=== PATIENT | male | born 1945 | race Caucasian/White ===

== ENCOUNTER 2022-06-20 06:36 | Inpatient (IN) ==
--- NOTE | 2022-06-09 09:56 | Anesthesiology Consultation ---
Date of Service June 09, 2022 Assessment & Plan (1) Encounter for pre-operative examination: Chart Review Chart Review: Acceptable Risk for Surgery and Patient NOT seen in Pre Admission Testing Pt initially scheduled for surgery 05/09/22 but case cancelled due to patient having yeast infection to bilateral groin area. Per nursing assessment- rash improving. - Check BSG AM DOS -COVID screening: Per PAT nursing assessment on 06/09/22. No known COVID-19 positive contacts or current COVID-19 related symptoms. Travel screen negative. Patient vaccinated for Covid. At surgeon discretion if preop Covid testing being done. History Surgery Operation Date: 06/14/22 08:00 Proposed Procedures p Percutaneous Endovascular Abdominal Aortic Aneurysm Repair - Lv Ervin MD Height/Weight Height: 5 ft 11 in Weight: 100.698 kg Allergies Allergy/AdvReac Type Severity Reaction Status Date / Time No Known Allergies Allergy Verified 05/09/22 06:25 Medications Home Medications Medication Instructions Recorded Confirmed Last Taken amlodipine 10 mg tablet 10 mg PO QAM 03/28/22 06/09/22 05/09/22 05:15 aspirin 81 mg tablet,delayed 81 mg PO QAM 03/28/22 06/09/22 05/09/22 05:15 release atenolol 100 mg tablet 100 mg PO QAM 03/28/22 06/09/22 05/09/22 05:15 atorvastatin 40 mg tablet 40 mg PO QAM 03/28/22 06/09/22 05/09/22 05:15 bupropion HCl 100 mg tablet 100 mg PO QAM 03/28/22 06/09/22 05/09/22 05:15 calcitriol 0.5 mcg capsule 0.5 mcg PO QAM 03/28/22 06/09/22 05/08/22 09:00 clonazepam 0.5 mg tablet (Klonopin) 0.5 mg PO BID 03/28/22 06/09/22 05/09/22 05:15 ezetimibe 10 mg tablet (Zetia) 10 mg PO QAM 03/28/22 06/09/22 05/09/22 05:15 fluoxetine 40 mg capsule (Prozac) 40 mg PO QAM 03/28/22 06/09/22 05/09/22 05:15 glimepiride 1 mg tablet 1 mg PO QAM 03/28/22 06/09/22 05/08/22 09:30 irbesartan 300 mg tablet 300 mg PO QAM 03/28/22 06/09/22 05/08/22 09:00 metformin 1,000 mg tablet 1,000 mg PO BID 03/28/22 06/09/22 05/07/22 09:00 spironolactone 25 mg tablet 25 mg PO QAM 03/28/22 06/09/22 Unknown (Aldactone) tamsulosin 0.4 mg capsule 0.4 mg PO HS 03/28/22 06/09/22 05/08/22 21:00 hydralazine 50 mg tablet 50 mg PO TID 04/18/22 06/09/22 05/09/22 05:15 insulin detemir U-100 100 unit/mL 18 unit subcut HS 04/18/22 06/09/22 05/08/22 19:00 (3 mL) subcutaneous pen nystatin 100,000 unit/gram topical 1 applic topical BID #60 grams 05/09/22 06/09/22 Unknown powder Past Medical History Medical History CKD (chronic kidney disease) Follows with Dr. Anne ([facility]) Comparison labs from 02/2022 with creatinine 2.22 (stable on preop labs) Diabetes mellitus IDDM History of anxiety History of high cholesterol Hx of abdominal aortic aneurysm A fusiform aneurysm of the infrarenal abdominal aorta measures 5.5 x 5.3 cm (AP x transverse), There is thrombus within the aneurysm sac which measures 7.4 cm craniocaudal dimension > per 03/28/22 CTA Abd/pelvis Hx of chronic sinusitis Hypertension Left bundle branch block Obesity Rash Rash to upper thigh, pt thinks from sweating at night, Dr Ervin aware, medication prescribed, pt states rash is improving, not completely gone, but better. Umbilical hernia Past Family History Family History Mother Hx of abdominal aortic aneurysm Hx of thyroid disease Father Hx of kidney disease Past Surgical History Surgical History History of deviated nasal septum Multiple repairs Hx of appendectomy Hx of cataract extraction R/L Hx of colonoscopy Hx of inguinal hernia repair Hx of malignant neoplasm of thymus removed Hx of tonsillectomy Hx of tooth extraction Hx of wisdom tooth extraction Social History Smoking Status: Former smoker tobacco type: cigarettes Do You Dip or Chew Tobacco: No Smoking End Date: quit 12 yrs ago Hx Alcohol Use: Yes Alcohol type: beer, wine and hard liquor alcohol intake frequency: holidays/special occasions only Hx Substance Use: No substance use type: does not use Lab Results Anesthesia Preop Results Results Anesthesia Widget: WBC 8.03 K/ul (4.8-10.8) 05/03/22 Hgb 15.8 g/dl (14.0-18.0) 05/03/22 Hct 44.9 % (40.1-51.0) 05/03/22 Plt 224 K/uL (130-400) 05/03/22 Na 138 mmol/L (136-145) 05/03/22 K 4.7 mmol/L (3.5-5.1) 05/03/22 Cl 105 mmol/L (98-107) 05/03/22 CO2 24 mmol/L (21-32) 05/03/22 BUN 37 mg/dl (6-23) H 05/03/22 Creat 2.37 mg/dl (0.6-1.4) H 05/03/22 Glucose Level 228 mg/dl (70-99(Fasting)) H 05/03/22 POC Glucose 181 mg/dl (70-99) H 05/09/22 PT 10.6 Seconds (9.0-12.0) 05/03/22 PTT 28.8 Seconds (21.0-31.0) 05/03/22 INR 1.0 (0.9-1.1) 05/03/22 HA1c 8.2 % (4.5-5.6) H 05/03/22 Blood Type A Positive 05/09/22 Antibody Screen NEGATIVE 05/09/22 Testing Electrocardiogram Date: 05/03/22 NSR at 66bpm. LBBB. Echo performed 05/03/22. Chest X-Ray Date: 05/03/22 FINDINGS: PA and lateral chest radiographs are obtained. No prior studies are available for comparison at the time of dictation. The heart is enlarged. The pulmonary vasculature is noncontrast. There is apparent widening of the mediastinum. Emphysematous changes noted. Nonspecific interstitial thickening is likely chronic. Foci of parenchymal scarring are seen throughout both lungs. No airspace consolidation typical for pneumonia or pleural effusion is identified. There is no pneumothorax. The skeletal structures are osteopenic. The bony thorax appears intact. IMPRESSION: Cardiomegaly and emphysema with no active disease in the chest. There is apparent widening of the mediastinum. This may related to ectasia or uncoiling of the thoracic aorta. Correlation with a CT angiogram of the chest is recommended to exclude underlying thoracic aortic aneurysm. (Dr Ervin reviewed CXR and feels patient can proceed with PEVAR as scheduled) Echocardiogram Date: 05/03/22 EF 55%. No RWMA. Septal motion consistent with bundle branch block. Moderate cLVH. Mild biatrial dilation. No significant valvular disease. Other Testing CTA Abdomen/Pelvis (03/28/22) There is a 5.5 x 5.3 cm fusiform aneurysm of the infrarenal abdominal aorta as detailed above. Note that there are 2 large right renal arteries. The more inferiorly located renal artery arises 2 cm above the aneurysm sac. The major branches of the abdominal aorta are widely patent, as are the iliac arteries. Cardiomegaly and emphysema. Cholelithiasis. Marked prostatomegaly with evidence of chronic bladder outlet obstruction.
--- NOTE | 2022-06-19 13:15 | History & Physical Report ---
Date of Service June 19, 2022 Assessment & Plan (1) AAA (abdominal aortic aneurysm) without rupture: Plan: Patient is admitted for a PEVAR repair of his AAA. I have discussed the risks options and benefits of the procedure with the patient. The patient understands the risks options and benefits and agrees to the procedure. History of Present Illness Chief Complaint: AAA Primary Care Provider: Shantanu Live DO Mr. Calderon is an elderly male who presented for a 6-month follow-up visit regarding his history of abdominal aortic aneurysm. Patient denies any significant changes in his health since being seen here 6 months ago. On usn the aneurysm has grown to 5.2 cm in size. This was confirmed by CTA. He specifically denies any signs of cerebrovascular insufficiency, claudication, chest pain, shortness of breath, abdominal pain, nausea, vomiting, rest pain, nonhealing wounds or ulcers, discoloration of the feet or toes, other concerns. Allergies Allergy/AdvReac Type Severity Reaction Status Date / Time No Known Allergies Allergy Verified 05/09/22 06:25 Home Medications Medication Instructions Recorded Confirmed Type amlodipine 10 mg tablet 10 mg PO QAM 03/28/22 06/09/22 History aspirin 81 mg tablet,delayed 81 mg PO QAM 03/28/22 06/09/22 History release atenolol 100 mg tablet 100 mg PO QAM 03/28/22 06/09/22 History atorvastatin 40 mg tablet 40 mg PO QAM 03/28/22 06/09/22 History bupropion HCl 100 mg tablet 100 mg PO QAM 03/28/22 06/09/22 History calcitriol 0.5 mcg capsule 0.5 mcg PO QAM 03/28/22 06/09/22 History clonazepam 0.5 mg tablet (Klonopin) 0.5 mg PO BID 03/28/22 06/09/22 History ezetimibe 10 mg tablet (Zetia) 10 mg PO QAM 03/28/22 06/09/22 History fluoxetine 40 mg capsule (Prozac) 40 mg PO QAM 03/28/22 06/09/22 History glimepiride 1 mg tablet 1 mg PO QAM 03/28/22 06/09/22 History irbesartan 300 mg tablet 300 mg PO QAM 03/28/22 06/09/22 History metformin 1,000 mg tablet 1,000 mg PO BID 03/28/22 06/09/22 History spironolactone 25 mg tablet 25 mg PO QAM 03/28/22 06/09/22 History (Aldactone) tamsulosin 0.4 mg capsule 0.4 mg PO HS 03/28/22 06/09/22 History hydralazine 50 mg tablet 50 mg PO TID 04/18/22 06/09/22 History insulin detemir U-100 100 unit/mL 18 unit subcut HS 04/18/22 06/09/22 History (3 mL) subcutaneous pen nystatin 100,000 unit/gram topical 1 applic topical BID #60 grams 05/09/22 06/09/22 Rx powder Past Med/Surg History Medical History CKD (chronic kidney disease) Follows with Dr. Anne ([facility]) Comparison labs from 02/2022 with creatinine 2.22 (stable on preop labs) Diabetes mellitus IDDM History of anxiety History of high cholesterol Hx of abdominal aortic aneurysm A fusiform aneurysm of the infrarenal abdominal aorta measures 5.5 x 5.3 cm (AP x transverse), There is thrombus within the aneurysm sac which measures 7.4 cm craniocaudal dimension > per 03/28/22 CTA Abd/pelvis Hx of chronic sinusitis Hypertension Left bundle branch block Obesity Rash Rash to upper thigh, pt thinks from sweating at night, Dr Ervin aware, medication prescribed, pt states rash is improving, not completely gone, but better. Umbilical hernia Surgical History History of deviated nasal septum Multiple repairs Hx of appendectomy Hx of cataract extraction R/L Hx of colonoscopy Hx of inguinal hernia repair Hx of malignant neoplasm of thymus removed Hx of tonsillectomy Hx of tooth extraction Hx of wisdom tooth extraction Family History Mother Hx of abdominal aortic aneurysm Hx of thyroid disease Father Hx of kidney disease Social History Smoking Status: Former smoker Tobacco Type: Cigarettes Smoking End Date: quit 12 yrs ago; Second Hand Exposure: No; Do You Dip or Chew Tobacco: No; Tobacco Cessation Education Requested by Patient: No Hx Alcohol Use: Yes Alcohol type: beer, wine and hard liquor Alcohol Intake Frequency: Monthly or Less Hx Substance Use: No Preferred Language: Malagasy Communication Ability: Effective Hearing Ability: Hard of Hearing Air Tube Releaser Required: No Beliefs That Will Affect Care: None marital status: Current Living Situation: Spouse current occupational status: retired Other Information That Helps Us Care for You: No Feels Safe at Home: Yes Safety Concerns: Feels Safe At This Time caffeine: Yes (coffee) Physical Activity Frequency: Does not Exercise Seatbelt Use: always Sunscreen Use: No Assistive Devices: Glasses Review of Systems All systems reviewed & are unremarkable except as noted in HPI & below Physical Exam Constitutional: WD/WN, vitals as above Respiratory: normal respiratory effort Auscultation: + diminished lung sounds Cardiovascular: RRR, no murmur, no edema Vessels: abdominal aortic pulse present and femoral pulses present Extremities: normal capillary refill Gastrointestinal (Abdomen): normal bowel sounds, soft, nontender, no hepatosplenomegaly Musculoskeletal: no cyanosis or clubbing, extremities motor strength 5/5 Neurologic: CN's II-XI intact bilaterally and moves all extremities Psychiatric: Orientation: alert and oriented x 3
[~2022-06-20 06:36] MED LIST: LACTATED RINGER'S 1,000 ML IV SCH; ceFAZolin 2000MG 2,000 MG/15 ML SYR IV SCH
[2022-06-20] MEDS ORDERED: NEOSTIGMINE METHYLSULFATE 1 MG/ML 10ML VIAL ONE (06:51)
[2022-06-20] MEDS ORDERED: ONDANSETRON INJ 2 MG/ML 2 ML VIAL ONE (06:51)
[2022-06-20] MEDS ORDERED: fentaNYL citrate 100 MCG/2 ML VIAL ONE (06:51)
[2022-06-20] MEDS ORDERED: GLYCOPYRROLATE 0.2 MG/ML VIAL ONE (06:51)
[2022-06-20] MEDS ORDERED: PROPOFOL IV EMULSION 10 MG/ML 20 ML VIAL IV ONE (06:51)
[2022-06-20] MEDS ORDERED: PROMETHAZINE HCL 12.5 MG in SODIUM CHLORIDE 0.9% 50 ML IV PRN (07:13)
[2022-06-20] MEDS ORDERED: ATROPINE SULFATE 0.1 MG/ML 10ML SYR IV PRN (07:13)
[2022-06-20] MEDS ORDERED: ePHEDrine sulfate 50 MG/ML AMP IV PRN (07:13)
[2022-06-20] MEDS ORDERED: HYDROmorphone INJ 2 MG/ML SYR/VIAL IV PRN (07:13)
[2022-06-20] MEDS ORDERED: ONDANSETRON INJ 2 MG/ML 2 ML VIAL IV PRN ×2 (07:13→12:53)
[2022-06-20] MEDS ORDERED: fentaNYL citrate 100 MCG/2 ML VIAL IV PRN (07:13)
[2022-06-20 07:23] LABS: Albumin Level 4.3 gm/dl (3.4-5.0); Bilirubin Direct 0.1 mg/dl (0-0.2); Bilirubin,Total 0.9 mg/dl (0.2-1.0); Total Protein 7.7 gm/dl (6.0-8.3)
--- NOTE | 2022-06-20 07:27 | History & Physical Bridge Note ---
Date of Service June 20, 2022 History & Physical Bridge Note I have examined the patient, reviewed the History & Physical and in the interval since the performance of the History & Physical I have noted the following changes of clinical significance: no changes noted
[2022-06-20 08:04] LABS: Calcium 9.7 mg/dl (8.5-10.1); Creatinine Clr Calc Pharmacy 31.1 ml/min; Potassium 4.1 mmol/L (3.5-5.1)
[2022-06-20] MEDS ORDERED: HEPARIN SOD (PORCINE) 1000 UNIT/ML ONE (09:50)
[2022-06-20] MEDS ORDERED: ePHEDrine sulfate 50 MG/ML SYR ONE (09:50)
[2022-06-20] MEDS ORDERED: PROTAMINE SULFATE 10 MG/ML 5 ML VIAL IV ONE (10:35)
[2022-06-20] MEDS ORDERED: VISIPAQUE IV PRN (10:37)
[2022-06-20] MEDS ORDERED: ROCURONIUM BROMIDE 10 MG/ML 5 ML VIAL IV ONE (10:39)
[2022-06-20] MEDS ORDERED: ARISTA ABSORBABLE HEMOSTAT 3GM TOP ONE (10:42)
[2022-06-20] MEDS ORDERED: LIDOCAINE 2% MPF LOCAL 5 ML VIAL INFIL ONE (10:44)
--- NOTE | 2022-06-20 10:55 | Post Operative Brief Note ---
Immediate Post Op Note v1 Date of Surgery June 20, 2022 Pre & Post Diagnosis Operation Date: 06/20/22 08:00 Pre-Op Diagnosis: Infrarenal Abdominal Aortic Aneurysm Post-Op Diagnosis: Infrarenal Abdominal Aortic Aneurysm I identified the patient and participated in the time-out.: Yes Procedure Operation Date: 06/20/22 08:00 Actual Procedures p Percutaneous Endovascular Aneurysm Repair, Mechanical Closure of Bilateral Femoral Arteries - Lv Ervin MD Surgeon Lv Ervin MD Radiator Mechanic MD Richie Estimated Blood Loss 30 Findings Consistent with Post-Op Diagnosis Drains Casey Catheter Anesthesia Type General Complications none Disposition Accompanied Patient To Recovery: No Disposition: Recovery Room
[2022-06-20] MEDS ORDERED: MIDAZOLAM HCL 1 MG/ML 2ML VIAL ONE (11:01)
--- NOTE | 2022-06-20 11:03 | Operative Report ---
Post Operative Report Pre & Post Diagnosis Operation Date: 06/20/22 08:00 Pre-Op Diagnosis: Infrarenal Abdominal Aortic Aneurysm Post-Op Diagnosis: Infrarenal Abdominal Aortic Aneurysm I identified the patient and participated in the time-out.: Yes Procedure Operation Date: 06/20/22 08:00 Actual Procedures p Percutaneous Endovascular Aneurysm Repair, Mechanical Closure of Bilateral Femoral Arteries - Lv Ervin MD Surgeon Lv Ervin MD Chemical Analyst Moses Diaz MD Estimated Blood Loss 30 Findings Consistent with Post-Op Diagnosis Infrarenal abdominal aortic aneurysm excluded following EVAR. Delayed Type II endoleak present at case completion. Bilateral renal arteries, external and iliac arteries patent without stenosis. Specimens None Drains None Anesthesia Type General Complications None Disposition Accompanied Patient To Recovery: No Indications Infrarenal abdominal aortic aneurysm Description of Procedure The patient was taken to the operating room suite and placed in the supine position. The abdomen, bilateral groins, and bilateral thigh was then prepped and draped in a sterile manner. Using ultrasound guidance, the right common femoral artery was accessed using micropuncture technique. Micropuncture wire and was then inserted. A small skin incision was made at the skin site of entry and subcutaneous tissue was dilated using a hemostat. A 5Fr sheath was then placed into the right common femoral artery over the micropuncture wire. The 5Fr sheath was exchanged for the placement of a Perclose closure device at the 10 o'clock position followed by a second Perclose closure device at the 2 o'clock position, followed by a 8Fr sheath over the micropuncture wire. Attention was then turned to the left groin where the left common femoral artery was accessed using micropuncture technique. The micropuncture wire was then inserted. A small skin incision was made at the skin site of entry and subcutaneous tissue was dilated using a hemostat. A 5Fr sheath was then placed into the left common femoral artery over the micropuncture wire. This was exchanged for a angled glide wire. A 14Fr Manta closure device measuring tool was advanced over the wire, measuring depth of closure at 6cm. An angled glidewire was advanced through the right access side into the abdominal aorta. A pigtail catheter was advanced over the wire and the wire was exchanged for a stiff Damari wire advanced into the thoracic aorta. A pigtail catheter was advanced over the angled glidewire on the left side into the abdominal aorta and the wire was exchanged for a stiff Damari wire advanced into the thoracic aorta. On the right side, the 8Fr sheath was exchanged for a 12Fr dilator followed by an exchange for the main body device of the [place] Excluder, 26mm x 14.5mm x 12cm. This was advanced up the right side to the level of about L2. The wire on the left was removed and the pigtail was connected to the power injector. An aortogram was taken and the level of the inferior origin of the bilateral renal arteries were marked. The main body device was deployed to the opening of the contralateral gate. The device was removed and a 16Fr DrySeal sheath was placed. From the left side, the pigtail catheter was exchanged for an angled catheter the contralateral gate was cannulated using an angled glide wire. A pigtail was then advanced to the top of the graft on the left and an image was taken marking the origin of the common and internal iliac artery on the left. This was marked. An appropriately sized 16mm x 16mm x13.5 mm [place] limb was then advanced and deployed. The device was exchanged for a 12 Fr DrySeal sheath. The proximal graft, origin of left limb at the flow divider, and the distal limb were then ballooned using hand insufflation. Attention was moved to the right side where an appropriately sized 16mm x 16mm x 9.5cm limb was deployed and then ballooned using hand insufflation. A completion angiogram was performed demonstrating a small type II endoleak. No Type I or type III endoleak. Bilateral renal arteries and internal iliac arteries with brisk filling. The left DrySeal sheath was exchanged for the 14Fr Manta device. The Manta was deployed. Adequate hemostasis was obtained. Angiography following deployment showed intact AGRICULTURAL EQUIPMENT SALES MANAGER, SFA and profunda on the left without contrast extravasation. Pressure was held. The right DrySeal sheath was then removed with deployment of both Perclose devices. Pressure was held and adequate hemostasis was obtained. Patient was extubated and taken to the PACU in stable condition. A total of 9.9min of fluoroscopy time, 465 mGy and 80cc contrast used for the duration of the case. I, Dr. Ervin was present and scrubbed for the entire procedure. I attest to the content of the Intraoperative Record and any orders documented therein. Any exceptions are noted below. Supervising Physician Co-Signing Physician Notes Lv Ervin MD
[2022-06-20 12:16] LABS: Hematocrit (blood only) 40.9 % (40.1-51.0); Hemoglobin 14.1 g/dl (14.0-18.0)
[2022-06-20] MEDS ORDERED: D5W AND 1/2NSS 1,000 ML IV SCH (12:53)
[2022-06-20] MEDS ORDERED: MoRPHine SULFATE 4 MG/ML 1 ML CARP\\VIAL IV PRN (12:53)
[2022-06-20] MEDS ORDERED: oxyCODONE/ACETAMINOPHEN 5mg/325mg TAB PO PRN (12:53)
[2022-06-20] MEDS ORDERED: PHARMACY GLYCEMIC MGMT CONSULT PRN (12:53)
--- NOTE | 2022-06-20 13:26 | Anesthesiology Progress Note ---
Date of Service June 20, 2022 Anesthesia Post Procedure Vital Signs Vital Signs: Temp Pulse Pulse Pulse Resp BP BP 06/20/22 13:00 55 L 14 145/74 H 06/20/22 12:45 54 L 16 06/20/22 12:34 53 L 14 143/77 H 06/20/22 12:33 06/20/22 13:00 53 L 06/20/22 12:45 54 L 165/68 H 06/20/22 12:10 54 L 16 06/20/22 12:00 55 L 16 06/20/22 11:50 36.4 C L 56 L 17 06/20/22 11:40 57 L 17 06/20/22 11:30 56 L 17 06/20/22 11:20 64 18 06/20/22 11:11 37.0 C 61 18 06/20/22 07:02 37.1 C 63 20 143/91 H BP Pulse Ox O2 Del Method O2 Flow Rate 06/20/22 13:00 90 Oxymask 6 06/20/22 12:45 92 Oxymask 6 06/20/22 12:34 92 Oxymask 6 06/20/22 12:33 93 06/20/22 13:00 06/20/22 12:45 06/20/22 12:10 128/74 93 Oxymask 6 06/20/22 12:00 130/71 94 Oxymask 6 06/20/22 11:50 142/74 H 96 Oxymask 6 06/20/22 11:40 140/72 96 Oxymask 6 06/20/22 11:30 140/75 93 Oxymask 6 06/20/22 11:20 139/84 98 Oxymask 6 06/20/22 11:11 135/70 93 Oxymask 6 06/20/22 07:02 177/93 H 92 Room Air Transfer of Care Handoff Completed per policy Notes Mental Status: alert / awake / arousable and participated in evaluation Patient Amnestic to Procedure: Yes Nausea / Vomiting: adequately controlled Pain: adequately controlled Airway Patency, RR, SpO2: stable & adequate BP & HR: stable & adequate Hydration State: stable & adequate Anesthetic Complications: no major complications apparent
[2022-06-20] MEDS: hydrALAZINE TAB 50 MG TAB PO SCH ×2 (13:56→20:50)
--- NOTE | 2022-06-20 13:57 | Pharmacy Report ---
Pharmacy Glycemic Short Note 2 - Date of Service June 20, 2022 - Glycemic Short BSG Results (Last 24 hours): 06/20/22 06/20/22 06/20/22 06:56 07:36 11:26 Glucose 189 H POC Glucose 185 H 158 H 06/20/22 13:17 Glucose POC Glucose 162 H OUTPATIENT ANTIDIABETIC REGIMEN: * Glimepiride 1 mg qAM, Insulin detemir 18 units HS, metformin 1000 mg BID * A1c 8.2% 05/03/22 ASSESSMENT: * Patient admitted POD #0 percutaneous endovascular aneurysm repair. * 158 -162 mg/dL pre/post op; Patient took 18 units of insulin determir on 115 PM fasting 185 mg/dL this morning * Will continue home dose as lantus kevin, monitor for change * D5 +1/2NS ordered post-op, ? possible discontinuation as patient has diet ordered * Will start with weight based stress of 2 novolog parameters, overnight checks. PLAN FOR INPATIENT GLYCEMIC CONTROL: * Hold outpatient oral diabetes medications * Basal insulin * Lantus 18 units SQ HS * Bolus insulin * NovoLog per scale ACHS or Q6hrs while NPO * Goal Range: Low 110 mg/dL - High 140 mg/dL * Correction Factor: 25 mg/dL/unit * Nutritional / Prandial insulin per carb ratio of 1 unit per 8 grams CHO consumed
--- NOTE | 2022-06-20 14:13 | Critical Care Consultation ---
Date of Consultation June 20, 2022 Assessment & Plan (1) Encounter for postoperative care: Pt is a 76 yo male with PMH of HTN, CKD, and DM on insulin presenting to the hospital for an elective repair of a 5.2 cm infrarenal AAA. He is s/p PEVAR. Infrarenal AAA s/p PEVAR - w/o immediate complication - continue to monitor in ICU for 24 hours DM - pt on metformin and glimepiride at home in addition to 18 units levemir each night - hold PO medications while hospitalized - basal/bolus insulin w/ SS HTN - per pt's , stable at home w/ medications - BPs in 140s-160s - will resume home regimen tomorrow AM CKD - Cr stable from last available labs in 02/2022 - avoid nephrotoxins - continue to monitor (2) AAA (abdominal aortic aneurysm) without rupture: (3) Hypertension: (4) CKD (chronic kidney disease): (5) Diabetes mellitus: Plan Fluids: D5W w/ 1/2 NS at 125 mL/hr Diet: heart healthy, carb consistent Code: full Dispo: ICU for monitoring, plan to d/c tomorrow pending recovery Supervising Physician Co-Signing Physician Notes Dr. Chang was resident physician during care of patient. I separately evaluated patient for subramanian portions of the history and the exam. I was present during the critical portion of medical decision making, and I discussed the case with the resident. I generally agree with the findings and plan. History of Present Illness Reason for Consultation: post PEVAR Requesting Physician: Lv Ervin MD Attending Physician: Lv Ervin MD History of Present Illness Pt is a 76 yo male with PMH of HTN, CKD, and DM on insulin presenting to the hospital for an elective repair of a 5.2 cm infrarenal AAA. He is s/p PEVAR. Pt's and daughter at bedside. Pt feeling well overall. He states he is feeling more awake and "coming off the anesthesia." He denies any new symptoms of chest pain, shortness of breath, pain at the surgical site, or leg pains. Medical, surgical, and family hx reviewed with pt w/o any changes. Pt denies allergies. Allergies Allergy/AdvReac Type Severity Reaction Status Date / Time No Known Allergies Allergy Verified 06/20/22 06:52 Home Medications Medication Instructions Recorded Confirmed Type amlodipine 10 mg tablet 10 mg PO QAM 03/28/22 06/20/22 History aspirin 81 mg tablet,delayed 81 mg PO QAM 03/28/22 06/20/22 History release atenolol 100 mg tablet 100 mg PO QAM 03/28/22 06/20/22 History atorvastatin 40 mg tablet 40 mg PO QAM 03/28/22 06/20/22 History bupropion HCl 100 mg tablet 100 mg PO QAM 03/28/22 06/09/22 History calcitriol 0.5 mcg capsule 0.5 mcg PO QAM 03/28/22 06/20/22 History clonazepam 0.5 mg tablet (Klonopin) 0.5 mg PO BID 03/28/22 06/20/22 History ezetimibe 10 mg tablet (Zetia) 10 mg PO QAM 03/28/22 06/20/22 History fluoxetine 40 mg capsule (Prozac) 40 mg PO QAM 03/28/22 06/20/22 History glimepiride 1 mg tablet 1 mg PO QAM 03/28/22 06/20/22 History irbesartan 300 mg tablet 300 mg PO QAM 03/28/22 06/20/22 History metformin 1,000 mg tablet 1,000 mg PO BID 03/28/22 06/20/22 History spironolactone 25 mg tablet 25 mg PO QAM 03/28/22 06/20/22 History (Aldactone) tamsulosin 0.4 mg capsule 0.4 mg PO HS 03/28/22 06/20/22 History hydralazine 50 mg tablet 50 mg PO TID 04/18/22 06/20/22 History insulin detemir U-100 100 unit/mL 18 unit subcut HS 04/18/22 06/20/22 History (3 mL) subcutaneous pen nystatin 100,000 unit/gram topical 1 applic topical BID #60 grams 05/09/22 06/20/22 Rx powder oxycodone-acetaminophen 5 mg-325 1 tab PO Q6H PRN pain #14 tabs 06/21/22 Rx mg tablet (Percocet) Patient History Medical History (Updated 06/20/22 @ 14:02 by Osiris Chang DO) CKD (chronic kidney disease) Follows with Dr. 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 Umbilical hernia Surgical History History of deviated nasal septum Multiple repairs Hx of appendectomy Hx of cataract extraction R/L Hx of colonoscopy Hx of inguinal hernia repair Hx of malignant neoplasm of thymus removed Hx of tonsillectomy Hx of tooth extraction Hx of wisdom tooth extraction Family History Mother Hx of abdominal aortic aneurysm Hx of thyroid disease Father Hx of kidney disease Social History Smoking Status: Former smoker Tobacco Type: Cigarettes Smoking End Date: quit 12 yrs ago; Second Hand Exposure: No; Do You Dip or Chew Tobacco: No; Tobacco Cessation Education Requested by Patient: No Hx Alcohol Use: Yes Alcohol type: beer, wine and hard liquor Alcohol Intake Frequency: Monthly or Less Hx Substance Use: No Preferred Language: Azeri Communication Ability: Effective Hearing Ability: Hard of Hearing Terminal Makeup Operator Required: No Beliefs That Will Affect Care: None marital status: Current Living Situation: Spouse current occupational status: retired Other Information That Helps Us Care for You: No Feels Safe at Home: Yes Safety Concerns: Feels Safe At This Time caffeine: Yes (coffee) Physical Activity Frequency: Does not Exercise Seatbelt Use: always Sunscreen Use: No Assistive Devices: Glasses Review of Systems Review of Systems: All systems reviewed & are unremarkable except as noted in Subjective Physical Exam Constitutional: NAD. Vitals WNL. Currently wearing oxymask w/ 6L flow. Neck: No thyromegaly. Trachea midline. Respiratory: CTA bilaterally. No rhonchi, wheezing, or crackles. Non labored breathing. Cardiovascular: RRR. No murmur noted. No LE edema. Gastrointestinal (Abdomen): +BS. Nontender in all 4 quadrants. No masses noted. Psychiatric: Alert. Mood and affect congruent. Results & Data Results & Data ([facility]) Vital Signs (Past 12 Hours) Vital Signs Temp Pulse Pulse Pulse Resp BP BP 06/20/22 13:30 53 L 24 148/78 H 06/20/22 13:15 52 L 18 152/79 H 06/20/22 13:00 55 L 14 145/74 H 06/20/22 12:45 54 L 16 06/20/22 12:34 53 L 14 143/77 H 06/20/22 12:33 06/20/22 12:45 06/20/22 13:00 53 L 06/20/22 12:45 54 L 165/68 H 06/20/22 12:10 54 L 16 06/20/22 12:00 55 L 16 06/20/22 11:50 36.4 C L 56 L 17 06/20/22 11:40 57 L 17 06/20/22 11:30 56 L 17 06/20/22 11:20 64 18 06/20/22 11:11 37.0 C 61 18 06/20/22 07:02 37.1 C 63 20 143/91 H BP Pulse Ox O2 Del Method O2 Flow Rate 06/20/22 13:30 93 Oxymask 6 06/20/22 13:15 92 Oxymask 6 06/20/22 13:00 90 Oxymask 6 06/20/22 12:45 92 Oxymask 6 06/20/22 12:34 92 Oxymask 6 06/20/22 12:33 93 06/20/22 12:45 Oxymask 6 06/20/22 13:00 06/20/22 12:45 06/20/22 12:10 128/74 93 Oxymask 6 06/20/22 12:00 130/71 94 Oxymask 6 06/20/22 11:50 142/74 H 96 Oxymask 6 06/20/22 11:40 140/72 96 Oxymask 6 06/20/22 11:30 140/75 93 Oxymask 6 06/20/22 11:20 139/84 98 Oxymask 6 06/20/22 11:11 135/70 93 Oxymask 6 06/20/22 07:02 177/93 H 92 Room Air Resident Activity Tracking Resident Involvement: Resident Care Provided Care Provided: Adult Hospital Medicine
[2022-06-20] MEDS: INSULIN ASPART PER UNIT SC SCH ×3 (14:48→20:51)
[2022-06-20] MEDS ORDERED: ICU Protocol for HYPERglycemia SCH (16:30)
[2022-06-20] MEDS ORDERED: INSULIN ASPART PER UNIT SC SCH (16:30)
[2022-06-20] MEDS: ceFAZolin 2000MG 2,000 MG/15 ML SYR IV SCH (18:34)
[2022-06-20] MEDS: clonazePAM 0.5 MG TAB PO SCH (20:50)
[2022-06-20] MEDS ORDERED: INSULIN DETEMIR U SQ SCH (21:00)
[2022-06-20] MEDS ORDERED: LANTUS PER UNIT CHARGE SQ ONE (21:00)
[2022-06-20] MEDS ORDERED: TAMSULOSIN HCL 0.4 MG CAP PO SCH (21:00)
[2022-06-20] MEDS ORDERED: INSULIN SQ SCH (21:00)
[2022-06-21] MEDS: ceFAZolin 2000MG 2,000 MG/15 ML SYR IV SCH (00:54)
[2022-06-21] MEDS: INSULIN ASPART PER UNIT SC SCH ×4 (00:58→12:15)
[2022-06-21 04:15] LABS: Basophils # (auto) 0.02 K/uL (0-0.2); Basophils % (auto) 0.2 %; Eosinophils # (auto) 0.05 K/uL (0-0.50); Eosinophils % (auto) 0.5 %; Hemoglobin 14.6 g/dl (14.0-18.0); Immature Granulocytes # (auto) 0.05 K/uL (0.00-0.02); Immature Granulocytes % (auto) 0.5 %; Lymphocytes # (auto) 1.82 K/uL (1.2-3.4); Lymphocytes % (auto) 17.1 %; Mean Corpuscular Hemoglobin 31.5 pg (25.0-34.0); Mean Corpuscular Hgb Conc 34.8 g/dL (32.0-36.0); Mean Corpuscular Volume 90.7 fL (80.0-100.0); Mean Platelet Volume 9.2 fL (9.4-12.4); Monocytes # (auto) 1.08 K/uL (0.24-0.82); Monocytes % (auto) 10.2 %; Neutrophils # (auto) 7.61 K/uL (1.4-6.5); Neutrophils % (auto) 71.5 %; Platelet Count 193 K/uL (130-400); RDW Coefficient of Variation 13.1 % (11.5-14.5); RDW Standard Deviation 42.6 fL (36.4-46.3); Red Blood Count 4.63 M/uL (4.63-6.08); White Blood Count 10.63 K/ul (4.8-10.8)
[2022-06-21 04:45] LABS: BUN Creatinine Ratio 13.9 (10-20); Calcium 9.1 mg/dl (8.5-10.1); Creatinine Clr Calc Pharmacy 40.2 ml/min; Est GFR (African American) 39.6 ml/min; Est GFR (Non-African American) 34.2 ml/min; Potassium 4.1 mmol/L (3.5-5.1)
--- NOTE | 2022-06-21 07:36 | Critical Care Progress Note ---
Date of Service June 21, 2022 Assessment & Plan (1) Encounter for postoperative care: Plan: Pt is a 76 yo male with PMH of HTN, CKD, and DM on insulin presenting to the hospital for an elective repair of a 5.2 cm infrarenal AAA. He is s/p PEVAR. Infrarenal AAA s/p PEVAR - w/o immediate complication - continue to monitor in ICU for 24 hours DM - pt on metformin and glimepiride at home in addition to 18 units levemir each night - hold PO medications while hospitalized - basal/bolus insulin w/ SS HTN - per pt's , stable at home w/ medications - BPs in 140s-160s - will resume home regimen tomorrow AM CKD - Cr stable from last available labs in 02/2022 - avoid nephrotoxins - continue to monitor (2) AAA (abdominal aortic aneurysm) without rupture: (3) Hypertension: (4) CKD (chronic kidney disease): (5) Diabetes mellitus: Plan Fluids: D5W w/ 1/2 NS at 125 mL/hr Diet: heart healthy, carb consistent Code: full Dispo: ICU for monitoring, plan to d/c tomorrow pending recovery Admission and Anticipated Discharge Date Admission Date: June 20, 2022 Results & Data Results & Data ([facility]) Vital Signs (Past 12 Hours) Vital Signs Temp Pulse Resp BP Pulse Ox O2 Del Method O2 Flow Rate 06/21/22 06:30 65 17 90 06/21/22 06:30 147/83 H 06/21/22 06:00 65 18 90 Nasal Cannula 2 06/21/22 06:00 124/80 06/21/22 05:30 67 18 88 L Nasal Cannula 2 06/21/22 05:30 149/83 H 06/21/22 05:00 69 23 91 06/21/22 05:00 161/83 H 06/21/22 04:30 64 3 L 93 06/21/22 04:30 158/82 H 06/21/22 04:00 36.9 C 67 18 91 06/21/22 04:00 154/85 H 06/21/22 03:30 64 22 93 06/21/22 03:30 162/85 H 06/21/22 03:01 152/87 H 06/21/22 03:01 63 21 01/17/23 03:00 64 13 94 06/21/22 02:30 66 20 91 06/21/22 02:30 157/82 H 06/21/22 02:00 64 19 89 L Nasal Cannula 4 06/21/22 02:00 159/86 H 06/21/22 01:30 156/85 H 06/21/22 01:30 63 20 88 L 06/21/22 01:00 62 20 88 L 06/21/22 01:00 155/80 H 06/21/22 00:30 163/95 H 06/21/22 00:30 65 22 91 06/21/22 00:00 63 15 91 06/21/22 00:00 150/79 H 06/20/22 23:30 64 17 90 06/20/22 23:30 135/70 06/20/22 23:00 61 21 88 L 06/20/22 23:00 36.9 C 159/85 H 06/20/22 22:30 162/86 H 06/20/22 22:30 64 20 88 L Nasal Cannula 4 06/21/22 00:00 63 06/20/22 22:00 58 L 21 89 L 06/20/22 22:00 162/85 H 06/20/22 21:30 57 L 19 90 06/20/22 21:30 163/85 H 06/20/22 21:00 62 25 H 91 06/20/22 21:00 163/91 H 06/20/22 20:30 57 L 16 91 06/20/22 20:30 167/89 H 06/20/22 20:00 55 L 19 88 L 06/20/22 20:00 162/83 H 06/20/22 20:00 Nasal Cannula 5
[2022-06-21] MEDS ORDERED: FUROSEMIDE INJ 20 MG/2 ML VIAL IV ONE (07:55)
[2022-06-21] MEDS: hydrALAZINE TAB 50 MG TAB PO SCH ×2 (08:17→13:15)
[2022-06-21] MEDS: clonazePAM 0.5 MG TAB PO SCH (08:19)
[2022-06-21] MEDS ORDERED: ASPIRIN 81 MG ECTAB PO SCH (09:00)
[2022-06-21] MEDS ORDERED: EZETIMIBE 10 MG TABLET PO SCH (09:00)
[2022-06-21] MEDS ORDERED: buPROPion HCl 100 MG TABLET PO SCH (09:00)
[2022-06-21] MEDS ORDERED: CALCITRIOL 0.25 MCG CAPSULE PO SCH (09:00)
[2022-06-21] MEDS ORDERED: SPIRONOLACTONE 25 MG TAB PO SCH (09:00)
[2022-06-21] MEDS ORDERED: GLIMEPIRIDE 2 MG TAB PO SCH (09:00)
[2022-06-21] MEDS ORDERED: IRBESARTAN 150 MG TAB PO SCH (09:00)
[2022-06-21] MEDS ORDERED: amLODIPine BESYLATE 5 MG TAB PO SCH (09:00)
[2022-06-21] MEDS ORDERED: ATENOLOL 50 MG TABLET PO SCH (09:00)
[2022-06-21] MEDS ORDERED: FLUoxetine HCL 20 MG CAP PO SCH (09:00)
[2022-06-21] MEDS ORDERED: ATORVASTATIN 40 MG TAB PO SCH (09:00)
--- NOTE | 2022-06-21 10:14 | Billing Data ---
Date of Service June 20, 2022 Coding Level of Care Code INP/OBS CONSULT LVL 4, 60 MIN
--- NOTE | 2022-06-21 11:09 | Surgery Progress Note ---
Date of Service June 21, 2022 Assessment & Plan (1) AAA (abdominal aortic aneurysm) without rupture: Plan: Doing well post PEVAR. Can be d/c today (2) Postoperative urinary retention: Plan: Will place a clark for urinary retention and follow up with urology for follow up (3) Respiratory abnormalities: Plan: His sats occasionally drop to 87 on room air without any symtoms. He tried cpap in the past but did not tolerate the mask. His occasional drop in sats is most likely baseline. Admission and Anticipated Discharge Date Admission Date: June 20, 2022 Subjective Patient has no complaints. No leg or groin pain. He is having problems with urinating after the clark was removed. He claims to have freq urinations at home. He denies shortness of breath but does drop his sats to 87 on room air at times. He is supposed to have a CPAP at home but doesn't wear one or have one. Physical Exam Constitutional: WD/WN, vitals as above Respiratory: normal respiratory effort; no respiratory distress Auscultation: lungs clear to auscultation bilaterally Cardiovascular: Rate/Rhythm: regular rate and regular rhythm Gastrointestinal (Abdomen): Inspection/Auscultation: abdomen not distended Percussion/Palpation: abdomen soft; abdomen nontender Musculoskeletal: no cyanosis or clubbing, extremities motor strength 5/5 Skin: + incision (puncture sites without complications) Neurologic: CN's II-XI intact bilaterally and moves all extremities Psychiatric: Orientation: alert and oriented x 3 Results & Data ([facility]) Vital Signs (Past 12 Hours) Vital Signs Temp Pulse Resp BP Pulse Ox O2 Del Method O2 Flow Rate 06/21/22 10:04 88 L 06/21/22 10:04 85 L Room Air 06/21/22 09:05 70 22 162/82 H 89 L Room Air 06/21/22 08:30 64 19 164/78 H 91 Room Air 06/21/22 08:00 63 22 146/87 H 88 L Room Air 06/21/22 07:31 69 22 164/83 H 87 L Room Air 06/21/22 07:00 64 20 135/91 90 Nasal Cannula 2 06/21/22 08:00 36.4 C L 06/21/22 08:00 64 06/21/22 07:00 60 148/57 H 06/21/22 06:30 65 17 90 01/17/23 06:30 147/83 H 06/21/22 06:00 65 18 90 Nasal Cannula 2 06/21/22 06:00 124/80 06/21/22 05:30 67 18 88 L Nasal Cannula 2 06/21/22 05:30 149/83 H 06/21/22 05:00 69 23 91 06/21/22 05:00 161/83 H 06/21/22 04:30 64 3 L 93 06/21/22 04:30 158/82 H 06/21/22 04:00 36.9 C 67 18 91 06/21/22 04:00 154/85 H 06/21/22 03:30 64 22 93 06/21/22 03:30 162/85 H 06/21/22 03:01 152/87 H 06/21/22 03:01 63 21 06/21/22 03:00 64 13 94 06/21/22 02:30 66 20 91 06/21/22 02:30 157/82 H 06/21/22 02:00 64 19 89 L Nasal Cannula 4 06/21/22 02:00 159/86 H 06/21/22 01:30 156/85 H 06/21/22 01:30 63 20 88 L 06/21/22 01:00 62 20 88 L 06/21/22 01:00 155/80 H 06/21/22 00:30 163/95 H 06/21/22 00:30 65 22 91 06/21/22 00:00 63 15 91 06/21/22 00:00 150/79 H 06/20/22 23:30 64 17 90 06/20/22 23:30 135/70 06/21/22 00:00 63
--- NOTE | 2022-06-21 11:25 | Discharge Summary ---
Date of Service June 21, 2022 Admission HPI Per Admitting Provider Mr. Calderon is an elderly male who presented for a 6-month follow-up visit regarding his history of abdominal aortic aneurysm. Patient denies any significant changes in his health since being seen here 6 months ago. On usn the aneurysm has grown to 5.2 cm in size. This was confirmed by CTA. He specifically denies any signs of cerebrovascular insufficiency, claudication, chest pain, shortness of breath, abdominal pain, nausea, vomiting, rest pain, nonhealing wounds or ulcers, discoloration of the feet or toes, other concerns. Admission Exam Per Admitting Provider Constitutional: WD/WN, vitals as above Respiratory: normal respiratory effort Auscultation: + diminished lung sounds Cardiovascular: RRR, no murmur, no edema Vessels: abdominal aortic pulse present and femoral pulses present Extremities: normal capillary refill Gastrointestinal (Abdomen): normal bowel sounds, soft, nontender, no hepatosplenomegaly Musculoskeletal: no cyanosis or clubbing, extremities motor strength 5/5 Neurologic: CN's II-XI intact bilaterally and moves all extremities Psychiatric: Orientation: alert and oriented x 3 Principal Diagnosis Abdominal aortic aneurysm Discharge Exam Constitutional WD/WN, vitals as above Respiratory normal respiratory effort; no respiratory distress Auscultation: lungs clear to auscultation bilaterally and + diminished lung sounds Cardiovascular RRR, no murmur, no edema Rate/Rhythm: regular rate and regular rhythm Vessels: abdominal aortic pulse present and femoral pulses present Extremities: normal capillary refill Gastrointestinal (Abdomen) normal bowel sounds, soft, nontender, no hepatosplenomegaly Inspection/Auscultation: abdomen not distended Percussion/Palpation: abdomen soft; abdomen nontender Musculoskeletal no cyanosis or clubbing, extremities motor strength 5/5 Skin + incision (puncture sites without complications) Neurologic CN's II-XI intact bilaterally and moves all extremities Psychiatric Orientation: alert and oriented x 3 Discharge Data Allergies Allergy/AdvReac Type Severity Reaction Status Date / Time No Known Allergies Allergy Verified 06/20/22 06:52 Consultations 06/20/22 12:53 Consult Field Crop Technical Officer Routine Procedures Performed Operation Date: 06/20/22 08:00 Actual Procedures p Percutaneous Endovascular Aneurysm Repair, Mechanical Closure of Bilateral Femoral Arteries - Lv Ervin MD Ordered Studies 06/20/22 07:22 EV AAA repair aorta only Routine US EV guide vascular access Routine Hospital Course (1) AAA (abdominal aortic aneurysm) without rupture: Doing well post PEVAR. Can be d/c today (2) Postoperative urinary retention: Will place a clark for urinary retention and follow up with urology for follow up (3) Respiratory abnormalities: His sats occasionally drop to 87 on room air without any symtoms. He tried cpap in the past but did not tolerate the mask. His occasional drop in sats is most likely baseline. Total Time Total Time Spent Total Time Spent (In Minutes): 0 Discharge Plan Discharge Items Patient Disposition: Home - Self-Care Reason For Visit: Infrarenal Abdominal Aortic Aneurysm Discharge Diagnosis: AAA Activity: Per Instructions section Non-emergency contact: Surgeon Call non-emergency contact if: your temperature is above 101.5, your wound has increased redness, your wound has increased drainage and your wound pain has increased Follow-up/Referrals: Lv Ervin MD [Physician] - Shantanu Live DO [Primary Care Provider] - Diet: Carb Consistent or DM2 and Heart Healthy Addtl Attending Provider Instructions: SPECIAL CARE INSTRUCTIONS: Make an appointment with a urologist within one week for post op urinary retention requiring a clark with a leg bag. Medications: * Continue to take your medications as directed. * May use Tylenol for pain. A pain med script will be sent to your pharmacy if Tylenol doesn't work Incision/Puncture Site Care: * You will have an incision or puncture in each of your groins. * There will be small dressings covering your incisions. After you get home, you may remove the dressings and shower - allowing the warm soapy water to run over it. * Be sure to dry the sites well and keep them dry. * DO NOT SOAK IN A TUB/POOL/etc. UNTIL ALL SURGICAL SITES ARE HEALED. DO NOT REMOVE THE GLUE UNTIL THE INCISIONS HEAL. Restrictions: * Limit yourself to box toe stitcher activity for the first week. * You may walk and go up and down steps. * Avoid excessive bending or movement at the level of the incisions or punctures. Risks and Possible Complications: * Infection/Drainage/Bleeding - Drainage or bleeding from the incisions/puncture site should be minimal. If you have excessive bleeding or drainage, call our office ([phone]) right away. * Pain/Numbness - You may experience some mild pain or soreness at your incision sites. You may also have some numbness around the incisions or into the insides of your thighs. Bruising is normal and should resolve within 2 weeks. * Changes in Appetite or Bowel Habits - Mostly related to anesthesia and pain medication, some patients have reported decreased appetite and/or problems with constipation. These symptoms usually improve over a few weeks. Remembering to take an [id number] stool softener, as directed, will help you to avoid constipation. Call our office and seek emergent treatment if you develop: * Fever or chills * Have a temperature greater than 101 degrees F * Any redness or purulent drainage from your incisions or punctures * Severe abdominal, chest or back pain SKIN IRRITATION: * You may experience some redness and/or swelling in the area where radiation was administered. If any skin irritation occurs, please contact your family physician. You will be receiving a call from the Vascular Surgery Nurse after you are discharged. FOLLOW UP VISIT: It is important for you to keep your follow up appointments with your medical provider. Keep any scheduled doctor appointments. Call [phone] to schedule a follow up appointment if one not already scheduled. Pending Studies at Discharge: No Stand-Alone Forms: My [facility] [employer] Content, Smoking Cessation Medications and DC Order Prescriptions: New oxycodone-acetaminophen [Percocet] 5-325 mg tablet 1 tab PO Q6H PRN (Reason: pain) Qty: 14 0RF Continued fluoxetine [Prozac] 40 mg Capsule 40 mg PO QAM atorvastatin 40 mg Tablet 40 mg PO QAM atenolol 100 mg Tablet 100 mg PO QAM clonazepam [Klonopin] 0.5 mg Tablet 0.5 mg PO BID aspirin [Aspir-81] 81 mg Tablet,Delayed Release (Dr/Ec) 81 mg PO QAM spironolactone [Aldactone] 25 mg Tablet 25 mg PO QAM glimepiride 1 mg Tablet 1 mg PO QAM bupropion HCl 100 mg Tablet 100 mg PO QAM tamsulosin 0.4 mg Capsule 0.4 mg PO HS amlodipine 10 mg Tablet 10 mg PO QAM calcitriol 0.5 mcg Capsule 0.5 mcg PO QAM metformin 1,000 mg Tablet 1,000 mg PO BID irbesartan 300 mg Tablet 300 mg PO QAM ezetimibe [Zetia] 10 mg Tablet 10 mg PO QAM hydralazine 50 mg Tablet 50 mg PO TID Levemir Flexpen 100 unit/mL (3 mL) Insulin Pen 18 unit SUBCUT HS nystatin 100,000 unit/gram powder 1 applic topical BID Qty: 60 2RF Discharge Orders: Discharge Order (Routine); Ordered 06/21/22 Ordered By: Lv Ervin Admission Data Admit Date/Time: 06/20/22 07:27 Attending Provider: Lv Ervin Admit Provider: Lv Ervin Primary Care Provider: Shantanu Live Other Providers: Jhonathan Magdaleno ; Chandler Alfred ; Leroy Love ; Bijan Araujo ; Sterling Almaraz ; Paddy Wood ; Markie Menjivar ; José Antonio Ferrer ; Ami Levy
== END 2022-06-21 13:23 | disposition home or self-care (01) | DRG 269 ==
LOC: ASU 06:36 → 1E 07:27